=== PATIENT | male | born 1935 | race Caucasian/White ===

== ENCOUNTER 2021-05-28 22:36 | Emergency (ER) | payer MEDICARE, OTHER ==
[~2021-05-28] VITALS: Ht 175.3 cm; Wt 65.7 kg
[2021-05-29] MEDS ORDERED: ACETAMINOPHEN 500 MG TABLET PO ONE (00:30)
[2021-05-29] MEDS ORDERED: FINA-27 PO (01:02)
[2021-05-29] MEDS ORDERED: METO25 PO (01:02)
[2021-05-29] MEDS ORDERED: FURO20 PO (01:02)
[2021-05-29] MEDS ORDERED: BIOT1TAB6 PO (01:02)
[2021-05-29] MEDS ORDERED: ATOR40TA28 PO (01:02)
[2021-05-29] MEDS ORDERED: MELA5TAB40 PO (01:02)
[2021-05-29] MEDS ORDERED: TAMS-13 PO (01:02)
[2021-05-29] MEDS ORDERED: METF-960 PO (01:02)
[2021-05-29] MEDS ORDERED: CLOP75TA60 PO (01:02)
[2021-05-29] MEDS ORDERED: INSU100V42 SQ ×2 (01:02)
[2021-05-29] MEDS ORDERED: MAGN400T7 PO (01:02)
[2021-05-29 06:15] VITALS: BP 118/71
== END 2021-05-29 06:37 | disposition home or self-care (01) ==
LOC: EMS 22:43
DX: S43.421A Sprain of right rotator cuff capsule, initial encounter (principal); F32.9 Major depressive disorder, single episode, unspecified; E11.9 Type 2 diabetes mellitus without complications; I11.9 Hypertensive heart disease without heart failure; E78.00 Pure hypercholesterolemia, unspecified; F17.200 Nicotine dependence, unspecified, uncomplicated; Z79.4 Long term (current) use of insulin; Z88.0 Allergy status to penicillin; Z91.011 Allergy to milk products; W06.XXXA Fall from bed, initial encounter; Y93.89 Activity, other specified; Y92.89 Other specified places as the place of occurrence of the external cause; Y99.8 Other external cause status
CPT/HCPCS: 70450; 72125; 99285